=== PATIENT | female | born 1995 | race Caucasian/White ===

== ENCOUNTER 2021-06-02 19:04 | Emergency (ER) | payer OTHER ==
[2021-06-02] MEDS ORDERED: Lidocaine 1% w/Epinephrine 1:100K 20 ML VIAL ONE (20:19)
[2021-06-02] MEDS ORDERED: Clindamycin 150 MG CAP ONE (20:40)
== END 2021-06-02 20:52 | disposition home or self-care (01) ==
LOC: CSHERS 19:04
DX: L02.211 Cutaneous abscess of abdominal wall (principal); L03.311 Cellulitis of abdominal wall
CPT/HCPCS: 10060